=== PATIENT | female | born 1940 | race Caucasian/White ===

== ENCOUNTER 2018-03-01 20:51 | Emergency (ER) | payer OTHER, BC ==
[~2018-03-01] VITALS: Ht 167.6 cm; Wt 56.0 kg
[2018-03-02 00:45] VITALS: BP 175/98
== END 2018-03-02 00:46 | disposition home or self-care (01) ==
LOC: EME 20:51
DX: S00.01XA Abrasion of scalp, initial encounter (principal); S70.02XA Contusion of left hip, initial encounter; W18.30XA Fall on same level, unspecified, initial encounter; Y92.000 Kitchen of unspecified non-institutional (private) residence as the place of occurrence of the external cause; G20 Parkinson's disease; M41.9 Scoliosis, unspecified; Z98.890 Other specified postprocedural states
CPT/HCPCS: 70450; 99281; 99284